=== PATIENT | female | born 1955 | race Caucasian/White ===

== ENCOUNTER → 2017-03-06 | Outpatient (CLI) | payer OTHER ==
[~2017-03-06] MED LIST: ALPR-475 PO; ATARAX PO; BUTA1CAP30 PO; CYAN1TAB29 PO; CYCL5TAB PO; DEXL60CA2 PO; DIAZ5TAB PO; DULO60CA7 PO; ERGO500017 PO; ESTR2TAB4 PO; FLUC150T2 PO; GABA300C10 PO; HYDR10TA4 PO; HYDR200T PO; IRON CHEWS PO; IRON15TA3 PO; LACTAID3000 UNIT PO; LEVO25TA2 PO; MELA5TAB21 PO; MONT10TA6 PO; MULT-154 PO; OMEP20TA62 PO; ONDA8TAB9 PO; PIND5TAB PO; PSEU120T9 PO; RALO60TA PO; RANI150T8 PO; TEMA30CA6 PO; TOPI200T25 PO; VITA1TAB3 PO; [UNRECOGNIZED DRUG - CODE] EXT; [UNRECOGNIZED DRUG - CODE] INJ
[2017-03-06 16:24] LABS: BASOPHILS # (AUTO) 0.05 x10^3/uL (0-0.1); BASOPHILS % (AUTO) 1 % (0-1); EOSINOPHILS % (AUTO) 2 % (1-7); LYMPHOCYTES % (AUTO) 28 % (22-44); MD NO; MEAN CORPUSCULAR HEMOGLOBIN 28.5 pg (27.0-34.8); MEAN CORPUSCULAR HGB CONC 32.7 g/dL (32.4-35.8); MEAN CORPUSCULAR VOLUME 87.2 fL (80-100); MEAN PLATELET VOLUME 7.9 fL (7.4-10.4); MONOCYTES # (AUTO) 0.57 x10^3/uL (0.2-0.8); MONOCYTES % (AUTO) 6 % (2-9); NEUTROPHILS # (AUTO) 5.99 x10^3/uL (1.8-6.8); NEUTROPHILS % (AUTO) 64 % (42-75); PLATELET COUNT 330 x10^3/uL (130-400); RED CELL DISTRIBUTION WIDTH 15.9 % (9.6-15.2)
[2017-03-06 16:37] LABS: ALBUMIN 3.2 g/dL (3.4-5.0); ANION GAP 8 mmol/L (5-15); CALCIUM 8.4 mg/dL (8.5-10.1); CHLORIDE 109 mmol/L (98-107)
[2017-03-06 16:41] LABS: ALANINE AMINOTRANSFERASE 16 U/L (12-78); ALKALINE PHOSPHATASE 143 U/L (45-117); BILIRUBIN,TOTAL 0.4 mg/dL (0.2-1.0); CREATININE 1.02 mg/dL (0.55-1.02); TOTAL PROTEIN 7.7 g/dL (6.4-8.2)
== END | disposition home or self-care (01) ==
LOC: STAR 15:35
PROVIDERS: ATTEND Thoracic Surgery (Cardiothoracic Vascular Surgery)
DX: Z01.818 Encounter for other preprocedural examination (principal)
CPT/HCPCS: 36415; 80053; 85025; 93005

== ENCOUNTER → 2017-05-22 | Outpatient (CLI) | payer OTHER ==
[~2017-05-22] MED LIST changes: +HYDR15SO3 PO; -HYDR200T PO; +HYDR200T72 PO; +RANI150T4 PO; +SITA25TA PO
== END ==
LOC: STAR 14:25
PROVIDERS: ATTEND Surgery
DX: Z02.9 Encounter for administrative examinations, unspecified (principal)

== ENCOUNTER 2017-06-01 06:21 | Inpatient (IN) | payer OTHER ==
[~2017-06-01] VITALS: Ht 154.9 cm; Wt 92.6 kg
[~2017-06-01 06:21] MED LIST changes: +BUPIVACAINE/PF 0.5% ONE; +EPINEPHRINE 1 MG/ML, 1ML ONE
[2017-06-01] MEDS ORDERED: LACTATED RINGERS 1,000 ML IV SCH (06:58)
[2017-06-01] MEDS ORDERED: LIDOCAINE-MPF 1%, 2ML INFIL ONE (07:00)
[2017-06-01] MEDS ORDERED: DIPH25CA61 PO (07:02)
[2017-06-01] MEDS ORDERED: ONDA8TAB9 PO (07:02)
[2017-06-01] MEDS ORDERED: [UNRECOGNIZED DRUG - CODE] PO (07:02)
[2017-06-01] MEDS ORDERED: CHOL500050 PO (07:02)
[2017-06-01] MEDS ORDERED: LEVO100T PO (07:02)
[2017-06-01] MEDS ORDERED: MIDAZOLAM 1 MG/ML, 2ML ONE (07:27)
[2017-06-01] MEDS ORDERED: FENTANYL PF 250 MCG/5ML ONE (07:27)
[2017-06-01] MEDS ORDERED: DEXAMETHASONE 4 MG/ML, 1ML ONE (07:27)
[2017-06-01] MEDS ORDERED: SUCCINYLCHOLINE 20 MG/ML, 10ML ONE (07:27)
[2017-06-01] MEDS ORDERED: PROPOFOL 10 MG/ML, 20ML ONE ×2 (07:27→09:34)
[2017-06-01] MEDS ORDERED: ONDANSETRON 2MG/ML, 2ML ONE (07:27)
[2017-06-01 07:49] LABS: ALBUMIN 3.1 g/dL (3.4-5.0); ANION GAP 10 mmol/L (5-15); CALCIUM 8.2 mg/dL (8.5-10.1); CHLORIDE 110 mmol/L (98-107)
[2017-06-01 07:52] LABS: ALANINE AMINOTRANSFERASE 20 U/L (12-78); ALKALINE PHOSPHATASE 126 U/L (45-117); BILIRUBIN,TOTAL 0.5 mg/dL (0.2-1.0); CREATININE 0.93 mg/dL (0.55-1.02); TOTAL PROTEIN 7.1 g/dL (6.4-8.2)
[2017-06-01] MEDS ORDERED: CEFAZOLIN 1,000 MG ONE (08:04)
[2017-06-01] MEDS ORDERED: FENTANYL PF 100 MCG/2ML ONE (08:57)
[2017-06-01] MEDS ORDERED: LORazepam 2 MG/ML, 1ML IVPush PRN (09:00)
[2017-06-01] MEDS ORDERED: ONDANSETRON 2MG/ML, 2ML IVPush PRN (09:00)
[2017-06-01] MEDS ORDERED: PROMETHAZINE 12.5 MG SUPP PR PRN (09:00)
[2017-06-01] MEDS ORDERED: MIDAZOLAM 1 MG/ML, 2ML IV PRN (09:00)
[2017-06-01] MEDS ORDERED: EPHEDRINE 50 MG/ML, 1ML IVPush PRN (09:00)
[2017-06-01] MEDS ORDERED: MEPERIDINE/PF 25MG/0.5ML IVPush PRN (09:00)
[2017-06-01] MEDS ORDERED: FENTANYL PF 100 MCG/2ML IV PRN (09:00)
[2017-06-01] MEDS ORDERED: DIAZEPAM 5 MG/ML, 2ML IVPush PRN (09:00)
[2017-06-01] MEDS ORDERED: GLYCOPYRROLATE 0.4 MG/2 ML, 2ML ONE (09:36)
[2017-06-01] MEDS ORDERED: LORazepam 2 MG/ML, 1ML ONE (10:19)
[2017-06-01] MEDS ORDERED: MORPHINE SULFATE 4 MG/ML, 1ML ONE (10:38)
[2017-06-01] MEDS: morphine SULFATE 10 MG/ML, 1ML IV PRN ×2 (10:39→11:06)
[2017-06-01] MEDS ORDERED: METOPROLOL 1 MG/ML, 5ML ONE (10:41)
[2017-06-01] MEDS: METOPROLOL 1 MG/ML, 5ML IV PRN ×2 (10:42→11:06)
[2017-06-01] MEDS ORDERED: hydrALAzine 20 MG/ML, 1ML ONE (11:12)
[2017-06-01] MEDS ORDERED: hydrALAzine 20 MG/ML, 1ML IV ONE (11:30)
[2017-06-01] MEDS ORDERED: ONDANSETRON 2MG/ML, 2ML IV PRN (12:00)
[2017-06-01] MEDS ORDERED: ACETAMINOPHEN 325 MG TABLET PO PRN (12:00)
[2017-06-01] MEDS ORDERED: hydrALAzine 20 MG/ML, 1ML IV PRN (12:00)
[2017-06-01] MEDS ORDERED: ACETAMINOPHEN 650 MG SUPP PR PRN (12:00)
[2017-06-01] MEDS ORDERED: LACTASE 9,000 UNITS TABLET PO PRN (12:30)
[2017-06-01] MEDS ORDERED: MELATONIN 5 MG TABLET PO PRN (12:30)
[2017-06-01 12:50] VITALS: BP 138/79
[2017-06-01] MEDS: BUTALB/APAP/CAFFEINE 50MG/325MG/40MG PO PRN (14:47)
[2017-06-01] MEDS ORDERED: hydrOXyzine 10MG TABLET ONE (15:11)
[2017-06-01] MEDS: hydrOXyzine 10MG TABLET PO SCH ×2 (15:15→20:48)
[2017-06-01] MEDS: INSULIN REGULAR, HUMAN 100 UNIT/ML 3ML VIAL LOW DOSE SS SQ-INSULIN SCH ×2 (16:00→21:22)
[2017-06-01] MEDS: HYDROcodone/APAP 5/325 TABLET PO PRN ×2 (17:23→21:41)
[2017-06-01 19:18] VITALS: BP 121/75
[2017-06-01] MEDS: TOPIRAMATE 100 MG TABLET PO SCH (20:45)
[2017-06-01] MEDS: CYCLOBENZAPRINE 10 MG TABLET PO SCH (20:45)
[2017-06-01] MEDS: FAMOTIDINE 20 MG TABLET PO SCH (20:45)
[2017-06-01] MEDS: MONTELUKAST 10 MG TABLET PO SCH (20:45)
[2017-06-01] MEDS ORDERED: hydrOXyzine 10MG TABLET PO SCH (21:00)
[2017-06-01] MEDS: SODIUM CHLORIDE FLUSH 10ML SYR IVF SCH (21:00)
[2017-06-01] MEDS: DIPHENHYDRAMINE 25 MG CAPSULE PO PRN (23:07)
[2017-06-02 01:39] VITALS: BP 119/79
[2017-06-02] MEDS: HYDROcodone/APAP 5/325 TABLET PO PRN ×5 (01:42→20:03)
[2017-06-02 04:47] LABS: CALCIUM 7.6 mg/dL (8.5-10.1)
[2017-06-02] MEDS: LEVOTHYROXINE 100 MCG TABLET PO SCH (06:27)
[2017-06-02] MEDS: INSULIN REGULAR, HUMAN 100 UNIT/ML 3ML VIAL LOW DOSE SS SQ-INSULIN SCH ×5 (07:00→23:18)
[2017-06-02 07:10] VITALS: BP 129/84
[2017-06-02] MEDS: ESTRADIOL 2 MG TABLET PO SCH (08:24)
[2017-06-02] MEDS: FAMOTIDINE 40 MG TABLET PO SCH (08:24)
[2017-06-02] MEDS: CYCLOBENZAPRINE 10 MG TABLET PO SCH ×2 (08:24→20:04)
[2017-06-02] MEDS: CALCIUM CARBONATE 500 MG TABLET PO SCH ×2 (08:24→15:26)
[2017-06-02] MEDS: DULOXETINE 30 MG CAPSULE.DR PO SCH (08:24)
[2017-06-02] MEDS: SITAGLIPTIN 50MG TABLET PO SCH (08:25)
[2017-06-02] MEDS: hydrOXyzine 10MG TABLET PO SCH ×2 (08:25→20:03)
[2017-06-02] MEDS: TOPIRAMATE 100 MG TABLET PO SCH ×2 (08:25→20:03)
[2017-06-02] MEDS: SODIUM CHLORIDE FLUSH 10ML SYR IVF SCH ×2 (08:26→20:05)
[2017-06-02 12:24] VITALS: BP 109/72
[2017-06-02] MEDS ORDERED: CALCIUM GLUCONATE 4.6 MEQ in SODIUM CHLORIDE 0.9% 50 ML IV ONE (18:00)
[2017-06-02 18:48] VITALS: BP 128/81
[2017-06-02] MEDS: MONTELUKAST 10 MG TABLET PO SCH (20:03)
[2017-06-02] MEDS: FAMOTIDINE 20 MG TABLET PO SCH (20:03)
[2017-06-02] MEDS ORDERED: CALCIUM CARBONATE 500 MG TAB.CHEW PO SCH (21:00)
[2017-06-03] MEDS: HYDROcodone/APAP 5/325 TABLET PO PRN ×4 (00:16→13:29)
[2017-06-03] MEDS: DIPHENHYDRAMINE 25 MG CAPSULE PO PRN (01:26)
[2017-06-03] MEDS: BUTALB/APAP/CAFFEINE 50MG/325MG/40MG PO PRN ×2 (01:26→09:11)
[2017-06-03] MEDS: LEVOTHYROXINE 100 MCG TABLET PO SCH (05:03)
[2017-06-03 05:09] VITALS: BP 135/82
[2017-06-03 07:48] VITALS: BP 124/80
[2017-06-03] MEDS ORDERED: CALCIUM GLUCONATE 4.6 MEQ in SODIUM CHLORIDE 0.9% 50 ML IV ONE (08:00)
[2017-06-03] MEDS ORDERED: CALCITRIOL 0.5 MCG CAPSULE PO SCH (09:00)
[2017-06-03] MEDS ORDERED: CALCIUM CARBONATE 500 MG TAB.CHEW PO SCH (09:00)
[2017-06-03] MEDS: TOPIRAMATE 100 MG TABLET PO SCH (09:06)
[2017-06-03] MEDS: SODIUM CHLORIDE FLUSH 10ML SYR IVF SCH (09:06)
[2017-06-03] MEDS: ESTRADIOL 2 MG TABLET PO SCH (09:06)
[2017-06-03] MEDS: FAMOTIDINE 40 MG TABLET PO SCH (09:08)
[2017-06-03] MEDS: DULOXETINE 30 MG CAPSULE.DR PO SCH (09:08)
[2017-06-03] MEDS: SITAGLIPTIN 50MG TABLET PO SCH (09:09)
[2017-06-03] MEDS: hydrOXyzine 10MG TABLET PO SCH (09:09)
[2017-06-03] MEDS: CYCLOBENZAPRINE 10 MG TABLET PO SCH (09:13)
[2017-06-03] MEDS: INSULIN REGULAR, HUMAN 100 UNIT/ML 3ML VIAL LOW DOSE SS SQ-INSULIN SCH (12:18)
[2017-06-03 13:21] VITALS: BP 103/67
[2017-06-03] MEDS ORDERED: HYDR-3237 PO (14:33)
[2017-06-03] MEDS ORDERED: CALC0.5C9 PO (14:48)
== END 2017-06-03 15:10 | disposition home or self-care (01) | DRG 625 ==
LOC: OUT 06:21 → 4NOR 11:44 → OUT 12:24 → DCLOUNGE 06-03 14:44
PROVIDERS: ADMIT Surgery; ATTEND Surgery
PROC: 0GSR0ZZ Reposition Parathyroid Gland, Open Approach (ICD-10-PCS; 2017-06-01)
PROC: 4A1174G Monitoring of Peripheral Nervous Electrical Activity, Intraoperative, Via Natural or Artificial Opening (ICD-10-PCS; 2017-06-01)
PROC: 0GTK0ZZ Resection of Thyroid Gland, Open Approach (ICD-10-PCS; principal; 2017-06-01 08:00)
DX: E04.2 Nontoxic multinodular goiter (principal); E43 Unspecified severe protein-calorie malnutrition; E83.51 Hypocalcemia; E06.3 Autoimmune thyroiditis
CPT/HCPCS: 36415; 80053; 82310; 82330; 82962; 83970; 88305; 88307; 88333; 88334; J0171; J0610; J0690; J1100; J1815; J2250; J2405; J2704; J3010; J3490; C1760; J0330; J0360; J2060; J2270; J7120; Q0163

== ENCOUNTER 2017-06-19 17:19 | Observation (INO) | payer OTHER ==
[~2017-06-19] VITALS: Ht 154.9 cm; Wt 85.7 kg
[~2017-06-19 17:19] MED LIST changes: -BUPIVACAINE/PF 0.5% ONE; +CALC0.5C9 PO; +CHOL500050 PO; +DIPH25CA61 PO; -EPINEPHRINE 1 MG/ML, 1ML ONE; +HYDR-3237 PO; +LEVO100T PO; +RANI150T23 PO; -RANI150T8 PO; +[UNRECOGNIZED DRUG - CODE] PO
[2017-06-19] MEDS ORDERED: LEVO100T PO (17:32)
[2017-06-19] MEDS ORDERED: CYCL5TAB PO (17:32)
[2017-06-19] MEDS ORDERED: DULO60CA7 PO (17:32)
[2017-06-19] MEDS ORDERED: CALC0.5C9 PO (17:32)
[2017-06-19] MEDS ORDERED: [UNRECOGNIZED DRUG - CODE] PO (17:32)
[2017-06-19] MEDS ORDERED: ONDANSETRON ODT 4 MG ONE (17:48)
[2017-06-19] MEDS ORDERED: ONDANSETRON ODT 4 MG PO ONE (18:00)
[2017-06-19 18:20] LABS: ALBUMIN 2.9 g/dL (3.4-5.0); ANION GAP 11 mmol/L (5-15); CALCIUM 8.4 mg/dL (8.5-10.1); CHLORIDE 114 mmol/L (98-107)
[2017-06-19 18:23] LABS: ALANINE AMINOTRANSFERASE 20 U/L (12-78); ALKALINE PHOSPHATASE 123 U/L (45-117); BILIRUBIN,TOTAL 0.2 mg/dL (0.2-1.0); CREATININE 0.87 mg/dL (0.55-1.02); TROPONIN I < 0.015 ng/mL (0.000-0.045)
[2017-06-19 18:39] LABS: BASOPHILS # (AUTO) 0.07 x10^3/uL (0-0.1); BASOPHILS % (AUTO) 1 % (0-1); EOSINOPHILS # (AUTO) 0.26 x10^3/uL (0-0.4); EOSINOPHILS % (AUTO) 2 % (1-7); LYMPHOCYTES # (AUTO) 3.82 x10^3/uL (1-3.4); LYMPHOCYTES % (AUTO) 36 % (22-44); MD NO; MEAN CORPUSCULAR HEMOGLOBIN 27.7 pg (27.0-34.8); MEAN CORPUSCULAR HGB CONC 32.9 g/dL (32.4-35.8); MEAN CORPUSCULAR VOLUME 84.3 fL (80-100); MEAN PLATELET VOLUME 8.6 fL (7.4-10.4); MONOCYTES # (AUTO) 0.76 x10^3/uL (0.2-0.8); MONOCYTES % (AUTO) 7 % (2-9); NEUTROPHILS # (AUTO) 5.65 x10^3/uL (1.8-6.8); NEUTROPHILS % (AUTO) 54 % (42-75); PLATELET COUNT 397 x10^3/uL (130-400); RED BLOOD COUNT 5.09 x10^6/uL (3.82-5.3)
[2017-06-19] MEDS ORDERED: TEMAZEPAM 15 MG CAPSULE PO PRN (20:30)
[2017-06-19] MEDS ORDERED: ONDANSETRON ODT 4 MG PO PRN (20:30)
[2017-06-19] MEDS ORDERED: DIPHENHYDRAMINE 25 MG CAPSULE PO PRN (20:30)
[2017-06-19] MEDS ORDERED: TEMPLATE NON-FORMULARY MED. (Butalbital/Aspirin/Caffeine** (Fiorinal 50-325-40 Mg Capsule PO PRN (20:30)
[2017-06-19] MEDS: FAMOTIDINE 40 MG TABLET PO SCH (20:30)
[2017-06-19] MEDS ORDERED: ACETAMINOPHEN 325 MG TABLET PO PRN (20:30)
[2017-06-19] MEDS ORDERED: POLYETHYLENE GLYCOL 17 GM PACKET PO PRN (20:30)
[2017-06-19] MEDS ORDERED: hydrALAzine 20 MG/ML, 1ML IVPush PRN (20:30)
[2017-06-19 20:43] VITALS: BP 105/73
[2017-06-19 20:49] VITALS: BP 105/73
[2017-06-19] MEDS: GABAPENTIN 300 MG CAPSULE PO SCH ×2 (21:00→23:14)
[2017-06-19] MEDS ORDERED: NITROGLYCERIN 0.4 MG BOTTLE (25 TABS) SL PRN (21:00)
[2017-06-19] MEDS ORDERED: NITROGLYCERIN 0.4 MG/SPRAY SL PRN (21:00)
[2017-06-19] MEDS ORDERED: MORPHINE SULFATE 4 MG/ML, 1ML IVPush PRN (21:30)
[2017-06-19] MEDS: SODIUM CHLORIDE 0.9% 1,000 ML IV SCH (23:11)
[2017-06-19] MEDS: PINDOLOL 5 MG TABLET PO SCH ×2 (23:14→23:18)
[2017-06-19] MEDS: CALCITRIOL 0.5 MCG CAPSULE PO SCH (23:14)
[2017-06-19] MEDS: BUTALB/APAP/CAFFEINE 50MG/325MG/40MG PO PRN (23:14)
[2017-06-19] MEDS: FAMOTIDINE 20 MG TABLET PO SCH (23:15)
[2017-06-19] MEDS: CYCLOBENZAPRINE 10 MG TABLET PO SCH (23:20)
[2017-06-19] MEDS: hydrOXyzine 10MG TABLET PO SCH (23:21)
[2017-06-20 00:48] VITALS: BP 123/85
[2017-06-20 05:45] LABS: ANION GAP 7 mmol/L (5-15); CALCIUM 7.6 mg/dL (8.5-10.1); CHLORIDE 110 mmol/L (98-107); CHOLESTEROL, TOTAL 175 mg/dL (140-239); CREATININE 0.92 mg/dL (0.55-1.02)
[2017-06-20 05:50] LABS: CHOL/HDL RATIO 2.6; HDL CHOL % 38 % (28-40); HDL CHOLESTEROL (DIRECT) 67 mg/dL (40-60); LDL CHOLESTEROL,CALCULATED 87 mg/dL (54-169); LDL/HDL RATIO 1.3 (0.5-3.0); TRIGLYCERIDES 106 mg/dL (50-200); TROPONIN I < 0.015 ng/mL (0.000-0.045); VLDL CHOLESTEROL 21 mg/dL (0-25)
[2017-06-20] MEDS: SODIUM CHLORIDE 0.9% 1,000 ML IV SCH (06:08)
[2017-06-20] MEDS: LEVOTHYROXINE 100 MCG TABLET PO SCH (06:46)
[2017-06-20] MEDS ORDERED: REGADENOSON 0.4 MG/5 ML SYRINGE ONE (08:15)
[2017-06-20 08:24] VITALS: BP 124/64
[2017-06-20] MEDS: FAMOTIDINE 40 MG TABLET PO SCH (08:31)
[2017-06-20] MEDS: ESTRADIOL 2 MG TABLET PO SCH (08:31)
[2017-06-20] MEDS: hydrOXyzine 10MG TABLET PO SCH ×2 (10:27→21:23)
[2017-06-20] MEDS: CALCITRIOL 0.5 MCG CAPSULE PO SCH ×2 (10:28→21:23)
[2017-06-20] MEDS: CYCLOBENZAPRINE 10 MG TABLET PO SCH ×2 (10:28→21:23)
[2017-06-20] MEDS: TOPIRAMATE 100 MG TABLET PO SCH (10:28)
[2017-06-20] MEDS: MONTELUKAST 10 MG TABLET PO SCH (10:28)
[2017-06-20] MEDS: DULOXETINE 30 MG CAPSULE.DR PO SCH (10:28)
[2017-06-20] MEDS: SITAGLIPTIN 25MG TABLET PO SCH (10:28)
[2017-06-20] MEDS: GABAPENTIN 300 MG CAPSULE PO SCH ×3 (10:28→21:23)
[2017-06-20] MEDS: BUTALB/APAP/CAFFEINE 50MG/325MG/40MG PO PRN ×3 (10:38→21:23)
[2017-06-20 14:31] LABS: ALBUMIN 2.9 g/dL (3.4-5.0); ANION GAP 9 mmol/L (5-15); CALCIUM 7.8 mg/dL (8.5-10.1); CHLORIDE 112 mmol/L (98-107); CREATININE 0.85 mg/dL (0.55-1.02)
[2017-06-20] MEDS ORDERED: CALCIUM CARBONATE 500 MG TABLET PO SCH (16:00)
[2017-06-20] MEDS: CALCIUM CARBONATE 500 MG TAB.CHEW PO SCH ×2 (16:00→21:24)
[2017-06-20 16:36] VITALS: BP 109/76
[2017-06-20 21:21] VITALS: BP 115/71
[2017-06-20] MEDS: FAMOTIDINE 20 MG TABLET PO SCH (21:23)
[2017-06-20] MEDS: PINDOLOL 5 MG TABLET PO SCH (21:23)
[2017-06-21 03:03] VITALS: BP 115/75
[2017-06-21 05:09] LABS: ALBUMIN 2.8 g/dL (3.4-5.0); ANION GAP 9 mmol/L (5-15); CALCIUM 8.2 mg/dL (8.5-10.1); CHLORIDE 112 mmol/L (98-107); CREATININE 1.04 mg/dL (0.55-1.02)
[2017-06-21] MEDS: LEVOTHYROXINE 100 MCG TABLET PO SCH (06:21)
[2017-06-21 08:08] VITALS: BP 115/69
[2017-06-21] MEDS: MONTELUKAST 10 MG TABLET PO SCH (08:28)
[2017-06-21] MEDS: CYCLOBENZAPRINE 10 MG TABLET PO SCH (08:29)
[2017-06-21] MEDS: DULOXETINE 30 MG CAPSULE.DR PO SCH (08:29)
[2017-06-21] MEDS: hydrOXyzine 10MG TABLET PO SCH (08:30)
[2017-06-21] MEDS: SITAGLIPTIN 25MG TABLET PO SCH (08:30)
[2017-06-21] MEDS: CALCITRIOL 0.5 MCG CAPSULE PO SCH (08:30)
[2017-06-21] MEDS: PINDOLOL 5 MG TABLET PO SCH (08:30)
[2017-06-21] MEDS: FAMOTIDINE 40 MG TABLET PO SCH (08:30)
[2017-06-21] MEDS: GABAPENTIN 300 MG CAPSULE PO SCH ×2 (08:30→17:33)
[2017-06-21] MEDS: ESTRADIOL 2 MG TABLET PO SCH (08:30)
[2017-06-21] MEDS: TOPIRAMATE 100 MG TABLET PO SCH (08:30)
[2017-06-21] MEDS: CALCIUM CARBONATE 500 MG TAB.CHEW PO SCH ×2 (08:31→12:54)
[2017-06-21 12:52] VITALS: BP 116/75
[2017-06-21] MEDS: BUTALB/APAP/CAFFEINE 50MG/325MG/40MG PO PRN (12:54)
[2017-06-21 19:09] VITALS: BP 112/70
== END 2017-06-21 20:50 | disposition home or self-care (01) ==
LOC: ED 18:18 → EDIP 19:13 → 5SO 20:17
PROVIDERS: ADMIT Hospitalist; ATTEND Hospitalist
DX: R07.89 Other chest pain (principal); E11.9 Type 2 diabetes mellitus without complications; E44.1 Mild protein-calorie malnutrition; E83.51 Hypocalcemia; E89.0 Postprocedural hypothyroidism; F41.9 Anxiety disorder, unspecified; G43.909 Migraine, unspecified, not intractable, without status migrainosus; J98.11 Atelectasis; M35.00 Sjogren syndrome, unspecified; Z79.84 Long term (current) use of oral hypoglycemic drugs
CPT/HCPCS: 36415; 71045; 78452; 80048; 80053; 80061; 82040; 82330; 83735; 84439; 84443; 84484; 85025; 93005; 93017; 93306; 96361; 96374; 99285; A9502; C9898; G0378; J2785; J7030; Q0162

== ENCOUNTER 2019-11-28 14:51 | Inpatient (IN) | payer OTHER ==
[~2019-11-28] VITALS: Ht 154.9 cm; Wt 80.5 kg
[~2019-11-28 14:51] MED LIST changes: -ALPR-475 PO; +ALPR0.5T7 PO; +BUTA-177 PO; +CEPH500T PO; +FLUC150T PO; +HYDR-2995 PO; -HYDR10TA4 PO; +LEVA15HF5 INH; +LIRA0.6P PO; +RANI-467 PO; -RANI150T23 PO; +magnesium taurate PO; +vit d2 PO
--- NOTE | 2019-11-28 15:05 | NUR ---
pt amb to br and back to room with steady gait. urine collected and ua sent.
--- NOTE | 2019-11-28 15:08 | NUR ---
first contact with pt. pt c/o right sided kidney pain with nausea. pt stated"i have kidney stones." pt's aox4. resps even and unlabored. bp/spo2 monitors in place. call light within reach.
[2019-11-28] MEDS ORDERED: KETOROLAC 30 MG/1 ML ONE (15:28)
[2019-11-28] MEDS ORDERED: ONDANSETRON 2MG/ML, 2ML ONE ×2 (15:29→19:24)
[2019-11-28] MEDS ORDERED: HYDROmorphone 1 MG/ML, 1ML INJ ONE (15:29)
[2019-11-28] MEDS ORDERED: SODIUM CHLORIDE FLUSH 10ML SYR IVF ONE (15:30)
[2019-11-28] MEDS ORDERED: SODIUM CHLORIDE 0.9% 1,000ML IV ONE (15:30)
[2019-11-28] MEDS ORDERED: HYDROmorphone 2 MG/ML, 1ML IVPush PRN (15:30)
[2019-11-28] MEDS ORDERED: ONDANSETRON 2MG/ML, 2ML IVPush ONE ×2 (15:30→19:30)
[2019-11-28] MEDS ORDERED: KETOROLAC 30 MG/1 ML IVPush ONE (15:30)
[2019-11-28 15:39] LABS: BASOPHILS % (AUTO) 1 % (0-1); EOSINOPHILS % (AUTO) 3 % (1-7); LYMPHOCYTES % (AUTO) 39 % (22-44); MD NO; MEAN CORPUSCULAR HEMOGLOBIN 29.8 pg (27.0-34.8); MEAN CORPUSCULAR HGB CONC 32.8 g/dL (32.4-35.8); MEAN PLATELET VOLUME 7.9 fL (7.4-10.4); MONOCYTES % (AUTO) 8 % (2-9); NEUTROPHILS % (AUTO) 49 % (42-75); PLATELET COUNT 391 x10^3/uL (130-400); RED BLOOD COUNT 4.82 x10^6/uL (3.82-5.3); RED CELL DISTRIBUTION WIDTH 14.4 % (9.6-15.2)
--- NOTE | 2019-11-28 15:41 | NUR ---
piv est on r forearm. pt medicated per emar. ns infusing at this time. pt tolerated well.
[2019-11-28 15:44] LABS: ALANINE AMINOTRANSFERASE 16 U/L (12-78); ALBUMIN 2.9 g/dL (3.4-5.0); ANION GAP 6 mmol/L (5-15); CALCIUM 8.1 mg/dL (8.5-10.1); CHLORIDE 109 mmol/L (98-107); CREATININE 1.19 mg/dL (0.55-1.02)
[2019-11-28 15:46] LABS: ALKALINE PHOSPHATASE 98 U/L (45-117); BILIRUBIN,TOTAL 0.2 mg/dL (0.2-1.0); TOTAL PROTEIN 7.3 g/dL (6.4-8.2)
[2019-11-28 16:01] LABS: MICROSCOPIC INDICATED
--- NOTE | 2019-11-28 16:22 | NUR ---
court recording monitor placed. ekg done at bedside. pt stated'i don't have any pain now."
[2019-11-28 16:39] LABS: ALBUMIN 2.7 g/dL (3.4-5.0); ANION GAP 8 mmol/L (5-15); CHLORIDE 112 mmol/L (98-107)
[2019-11-28 16:45] LABS: ALANINE AMINOTRANSFERASE 14 U/L (12-78); ALKALINE PHOSPHATASE 90 U/L (45-117); BILIRUBIN,TOTAL 0.3 mg/dL (0.2-1.0); CREATININE 1.16 mg/dL (0.55-1.02); TOTAL PROTEIN 6.3 g/dL (6.4-8.2)
--- NOTE | 2019-11-28 17:07 | NUR ---
REPORT GIVEN TO CHAZ HUANG.
[2019-11-28] MEDS ORDERED: HYDR-826 PO (17:24)
[2019-11-28] MEDS ORDERED: VITAMIN D TD (17:24)
[2019-11-28] MEDS ORDERED: OMEP40CA42 PO (17:24)
[2019-11-28] MEDS ORDERED: DULA1.5P SQ-INSULIN (17:24)
[2019-11-28] MEDS ORDERED: SIME125C PO (17:24)
--- NOTE | 2019-11-28 17:30 | NUR ---
pt on vitals monitors. updated med rec. at bedside. pt resting calmly in bed. awaiting recheck.
--- NOTE | 2019-11-28 18:14 | NUR ---
PT TOLERATED STRAIGHT CATH PROCEDURE. PT AMBULATING TO BATHROOM AT THIS TIME. PT IS STEADY ON FEET. WILL CONTINUE TO MONITOR. CALL LIGHT WITHIN REACH.
[2019-11-28 18:33] LABS: MICROSCOPIC INDICATED
[2019-11-28] MEDS ORDERED: ACETAMINOPHEN 325 MG TABLET PO PRN (19:30)
[2019-11-28] MEDS ORDERED: TAMSULOSIN 0.4 MG CAP.ER.24H PO ONE (19:30)
[2019-11-28 19:45] LABS: LDL/HDL RATIO 0.8 (0.5-3.0)
[2019-11-28 20:32] VITALS: BP 126/82
[2019-11-28] MEDS: INSULIN LISPRO 100 UNITS/ML, PEN SQ-INSULIN SCH (21:22)
[2019-11-28] MEDS: SODIUM CHLORIDE 0.9% 1,000 ML IV SCH (21:52)
[2019-11-28] MEDS: morphine SULFATE 10 MG/ML, 1ML IVPush PRN (21:59)
[2019-11-28] MEDS: HEPARIN 5,000 UNITS/ML, 1ML SQ SCH (22:53)
[2019-11-28] MEDS: MELATONIN 5 MG TABLET PO SCH (22:56)
[2019-11-28] MEDS: PINDOLOL 5 MG TABLET PO SCH (22:56)
[2019-11-29 00:49] VITALS: BP 112/73
[2019-11-29] MEDS: SODIUM CHLORIDE 0.9% 1,000 ML IV SCH (02:55)
[2019-11-29] MEDS: ONDANSETRON 2MG/ML, 2ML IVPush PRN ×2 (03:03→11:18)
[2019-11-29] MEDS: morphine SULFATE 10 MG/ML, 1ML IVPush PRN ×5 (03:04→21:38)
[2019-11-29 05:37] LABS: ANION GAP 4 mmol/L (5-15); CALCIUM 7.7 mg/dL (8.5-10.1); CHLORIDE 115 mmol/L (98-107); CREATININE 1.47 mg/dL (0.55-1.02)
[2019-11-29 05:38] LABS: BASOPHILS % (AUTO) 1 % (0-1); EOSINOPHILS % (AUTO) 2 % (1-7); LYMPHOCYTES % (AUTO) 33 % (22-44); MEAN CORPUSCULAR HEMOGLOBIN 30.3 pg (27.0-34.8); MEAN CORPUSCULAR HGB CONC 32.4 g/dL (32.4-35.8); MEAN PLATELET VOLUME 7.9 fL (7.4-10.4); MONOCYTES % (AUTO) 8 % (2-9); NEUTROPHILS % (AUTO) 56 % (42-75); PLATELET COUNT 327 x10^3/uL (130-400); RED BLOOD COUNT 4.14 x10^6/uL (3.82-5.3); RED CELL DISTRIBUTION WIDTH 14.4 % (9.6-15.2)
[2019-11-29] MEDS: LEVOTHYROXINE 150 MCG TABLET PO SCH (06:04)
[2019-11-29 06:26] LABS: MD NO
[2019-11-29] MEDS: INSULIN LISPRO 100 UNITS/ML, PEN SQ-INSULIN SCH ×4 (07:00→21:00)
[2019-11-29 08:00] VITALS: BP 111/69
[2019-11-29] MEDS: DULOXETINE 30 MG CAPSULE.DR PO SCH (08:23)
[2019-11-29] MEDS: ESTRADIOL 2 MG TABLET PO SCH (08:23)
[2019-11-29] MEDS: TOPIRAMATE 100 MG TABLET PO SCH (08:24)
[2019-11-29] MEDS: HEPARIN 5,000 UNITS/ML, 1ML SQ SCH ×3 (08:25→23:15)
[2019-11-29] MEDS: MONTELUKAST 10 MG TABLET PO SCH (08:26)
[2019-11-29] MEDS: PINDOLOL 5 MG TABLET PO SCH ×2 (08:26→21:39)
[2019-11-29] MEDS: OMEPRAZOLE 20 MG CAPSULE.DR PO SCH (08:26)
[2019-11-29 13:02] VITALS: BP 109/72
[2019-11-29 18:43] VITALS: BP 125/79
[2019-11-29] MEDS: MELATONIN 5 MG TABLET PO SCH (21:39)
[2019-11-29 21:44] VITALS: BP 122/74
[2019-11-30 00:48] VITALS: BP 115/76
[2019-11-30] MEDS: LEVOTHYROXINE 150 MCG TABLET PO SCH (06:22)
[2019-11-30] MEDS: morphine SULFATE 10 MG/ML, 1ML IVPush PRN ×2 (06:23→20:28)
[2019-11-30 06:46] VITALS: BP 120/78
[2019-11-30] MEDS: INSULIN LISPRO 100 UNITS/ML, PEN SQ-INSULIN SCH ×4 (07:00→20:32)
[2019-11-30] MEDS: OMEPRAZOLE 20 MG CAPSULE.DR PO SCH (08:08)
[2019-11-30] MEDS: HEPARIN 5,000 UNITS/ML, 1ML SQ SCH ×2 (08:09→16:38)
[2019-11-30] MEDS: DULOXETINE 30 MG CAPSULE.DR PO SCH (08:17)
[2019-11-30] MEDS: ESTRADIOL 2 MG TABLET PO SCH (08:17)
[2019-11-30] MEDS: TOPIRAMATE 100 MG TABLET PO SCH (08:17)
[2019-11-30] MEDS: MONTELUKAST 10 MG TABLET PO SCH (08:17)
[2019-11-30] MEDS: PINDOLOL 5 MG TABLET PO SCH ×2 (08:17→20:29)
[2019-11-30] MEDS ORDERED: LORazepam 2 MG/ML, 1ML IVPush PRN (09:00)
[2019-11-30] MEDS: KETOROLAC 30 MG/1 ML IVPush SCH ×3 (09:40→22:42)
[2019-11-30 12:53] VITALS: BP 120/75
[2019-11-30 18:53] VITALS: BP 111/73
[2019-11-30] MEDS: MELATONIN 5 MG TABLET PO SCH (22:42)
[2019-12-01 00:07] VITALS: BP 100/65
[2019-12-01] MEDS: HEPARIN 5,000 UNITS/ML, 1ML SQ SCH ×2 (00:15→08:56)
[2019-12-01 04:59] LABS: BASOPHILS % (AUTO) 1 % (0-1); EOSINOPHILS % (AUTO) 4 % (1-7); LYMPHOCYTES % (AUTO) 27 % (22-44); MEAN CORPUSCULAR HEMOGLOBIN 30.1 pg (27.0-34.8); MEAN CORPUSCULAR HGB CONC 32.2 g/dL (32.4-35.8); MEAN PLATELET VOLUME 8.1 fL (7.4-10.4); MONOCYTES % (AUTO) 8 % (2-9); NEUTROPHILS % (AUTO) 60 % (42-75); PLATELET COUNT 310 x10^3/uL (130-400); RED BLOOD COUNT 4.02 x10^6/uL (3.82-5.3); RED CELL DISTRIBUTION WIDTH 14.4 % (9.6-15.2)
[2019-12-01 05:08] LABS: ALBUMIN 2.3 g/dL (3.4-5.0); ANION GAP 8 mmol/L (5-15); CALCIUM 8.1 mg/dL (8.5-10.1); CHLORIDE 110 mmol/L (98-107); CREATININE 1.54 mg/dL (0.55-1.02)
[2019-12-01 05:17] LABS: MD NO
[2019-12-01] MEDS: LEVOTHYROXINE 150 MCG TABLET PO SCH (05:27)
[2019-12-01] MEDS: KETOROLAC 30 MG/1 ML IVPush SCH ×2 (05:27→10:25)
[2019-12-01] MEDS: INSULIN LISPRO 100 UNITS/ML, PEN SQ-INSULIN SCH ×2 (07:00→10:46)
[2019-12-01 07:03] VITALS: BP 121/82
[2019-12-01] MEDS: ESTRADIOL 2 MG TABLET PO SCH (08:56)
[2019-12-01] MEDS: OMEPRAZOLE 20 MG CAPSULE.DR PO SCH (08:56)
[2019-12-01] MEDS: PINDOLOL 5 MG TABLET PO SCH (08:56)
[2019-12-01] MEDS: MONTELUKAST 10 MG TABLET PO SCH (08:56)
[2019-12-01] MEDS: TOPIRAMATE 100 MG TABLET PO SCH (08:56)
[2019-12-01] MEDS: DULOXETINE 30 MG CAPSULE.DR PO SCH (08:56)
== END 2019-12-01 11:50 | disposition home or self-care (01) | DRG 693 ==
LOC: ED 19:11 → EDIP 19:19 → 3N 20:02 → DCLOUNGE 12-01 11:33
PROVIDERS: ADMIT Family Medicine; ATTEND Family Medicine
PROC: 0T9B70Z Drainage of Bladder with Drainage Device, Via Natural or Artificial Opening (ICD-10-PCS; principal; 2019-11-28)
DX: N13.2 Hydronephrosis with renal and ureteral calculous obstruction (principal); K85.00 Idiopathic acute pancreatitis without necrosis or infection; E87.5 Hyperkalemia; E03.9 Hypothyroidism, unspecified; E11.8 Type 2 diabetes mellitus with unspecified complications; E21.3 Hyperparathyroidism, unspecified; M35.00 Sjogren syndrome, unspecified; N17.9 Acute kidney failure, unspecified; I10 Essential (primary) hypertension; Z87.442 Personal history of urinary calculi; Z90.49 Acquired absence of other specified parts of digestive tract; Z90.710 Acquired absence of both cervix and uterus; Z88.0 Allergy status to penicillin; Z88.6 Allergy status to analgesic agent; Z88.5 Allergy status to narcotic agent; Z91.040 Latex allergy status; Z88.2 Allergy status to sulfonamides; Z88.1 Allergy status to other antibiotic agents; Z82.5 Family history of asthma and other chronic lower respiratory diseases; Z82.49 Family history of ischemic heart disease and other diseases of the circulatory system; Z83.3 Family history of diabetes mellitus
CPT/HCPCS: 36415; 74176; 80048; 80053; 80061; 80069; 81001; 82962; 83690; 83735; 85025; 87086; 93005; 96374; 96375; 99285; G0378; J1170; J1644; J1885; J2405; J1815; J2060; J2270; J7030